=== PATIENT | male | born 1965 | race Caucasian/White ===

== ENCOUNTER 2023-02-02 08:15 | Inpatient (IN) | payer OTHER ==
[2023-02-02] VITALS (13 sets, daily range): BP systolic 91–117; BP diastolic 53–66; PULSE 65–78; RESP 18; TEMP 97.6–98.5
[~2023-02-02] VITALS: Ht 175.3 cm; Wt 95.4 kg
[~2023-02-02 08:15] MED LIST: AMLO2.5T96 PO; ASPI-1450 PO; ASPIRIN 81 MG CHEWABLE TABLET PO ONE; ATOR10TA PO; CETI-450 PO; CLOP75TA60 PO; DIAZEPAM 5 MG TABLET PO ONE; DiphenhydrAMINE HCL 50 MG CAPSULE PO ONE; LISI-892 PO; METF-1211 PO; METO25 PO; NITR0.4T52 SL; PANT-31 PO; SEMA7TAB2 PO; SODIUM CHLORIDE 0.9% 1,000 ML ONE
[2023-02-02] MEDS ORDERED: DiphenhydrAMINE HCL 50 MG CAPSULE ONE (09:21)
[2023-02-02] MEDS ORDERED: DIAZEPAM 5 MG TABLET ONE (09:21)
[2023-02-02] MEDS: SODIUM CHLORIDE 0.9% 1,000 ML IV SCH ×2 (09:32→20:35)
[2023-02-02 09:51] LABS: GLUCOMETER DEV NAME(LOC) SDS.; GLUCOSE,POINT OF CARE 92 MG/DL (70-110)
[2023-02-02] MEDS ORDERED: LIDOCAINE/PF 1% 30 ML VIAL ONE (10:30)
[2023-02-02] MEDS ORDERED: SODIUM BICARBONATE 50 MEQ/50 ML VIAL ONE (10:30)
[2023-02-02] MEDS ORDERED: HEPARIN SODIUM 1000 UNITS/NS 500 ML ONE (10:31)
[2023-02-02] MEDS ORDERED: IOHEXOL 300 MG/ML 100 ML VIAL ONE (10:31)
[2023-02-02] MEDS ORDERED: MIDAZOLAM HCL 2 MG/2 ML VIAL ONE (10:53)
[2023-02-02] MEDS ORDERED: FentaNYL CITRATE PF 100 MCG/2 ML VIAL ONE (10:53)
[2023-02-02] MEDS ORDERED: FentaNYL CITRATE PF 100 MCG/2 ML VIAL IVP ONE (11:30)
[2023-02-02] MEDS ORDERED: LIDOCAINE 1% 30 ML/SOD BICARB 8.4% 4 ML SQ ONE (11:30)
[2023-02-02] MEDS ORDERED: MIDAZOLAM HCL 2 MG/2 ML VIAL IVP ONE (11:30)
[2023-02-02] MEDS ORDERED: HEPARIN SODIUM 2,000 UNITS in HEPARIN SODIUM 1000 UNITS/NS 1,000 ML IARTER ONE (11:30)
[2023-02-02] MEDS ORDERED: IOHEXOL 300 MG/ML 100 ML VIAL ICOR ONE (11:30)
[2023-02-02] MEDS ORDERED: ASPI-1444 PO (11:33)
[2023-02-02] MEDS ORDERED: METO-408 PO (11:34)
[2023-02-02] MEDS ORDERED: GABA-529 PO (11:34)
[2023-02-02] MEDS ORDERED: NITROGLYCERIN 0.4 MG SUBLINGUAL TABLET #25 SL PRN (12:15)
[2023-02-02] MEDS ORDERED: DEXTROSE 50%-WATER 25 GM/50 ML SYRINGE IVP PRN (12:15)
[2023-02-02] MEDS: ACETAMINOPHEN 500 MG TABLET PO SCH (20:34)
[2023-02-02] MEDS: INSULIN LISPRO 100 UNITS/ML SQ PRN (20:45)
[2023-02-03] VITALS: BP 110/62; PULSE 70; RESP 18; TEMP 97.8
[2023-02-03 03:31] LABS: GLUCOMETER DEV NAME(LOC) 5S.1B; GLUCOSE,POINT OF CARE 142 MG/DL (70-110)
[2023-02-03 03:41] LABS: GLUCOMETER DEV NAME(LOC) 5S.2C; GLUCOSE,POINT OF CARE 127 MG/DL (70-110)
[2023-02-03 04:00] VITALS: BP 113/67; PULSE 67; RESP 18; TEMP 98.5
[2023-02-03 07:11] LABS: BASOPHILS % (AUTO) 0.3 % (0.0-2.0); EOSINOPHILS % (AUTO) 1.7 % (1.0-6.0); HEMATOCRIT 39.8 % (41-53); HEMOGLOBIN 13.3 g/dL (13.5-17.5); LYMPHOCYTES # (AUTO) 1.4 K/uL (1.0-4.8); MEAN CORPUSCULAR HEMOGLOBIN 30.2 pg (26.0-34.0); MEAN CORPUSCULAR HGB CONC 33.6 G/dL (31.0-37.0); MEAN CORPUSCULAR VOLUME 90 fL (80-100); MONOCYTES # (AUTO) 0.6 K/uL (0.1-1.0); MONOCYTES % (AUTO) 11.8 % (2.0-9.0); NEUTROPHILS # (AUTO) 3.1 K/uL (1.8-7.7); NEUTROPHILS % (AUTO) 59.2 % (40.0-70.0); PLATELET COUNT (AUTO) 158 K/uL (150-450); RED BLOOD CELL COUNT(AUTO) 4.42 MIL/uL (4.50-5.90); RED CELL DISTRIBUTION WIDTH 13.7 % (11.5-14.5); WHITE BLOOD COUNT (AUTO) 5.2 K/uL (4.5-11.0)
[2023-02-03 07:14] LABS: ANION GAP 10 mmol/L (8-16); CALCIUM, TOTAL 8.4 mg/dL (8.8-10.5); CARBON DIOXIDE 25 mmol/L (22-29); CHLORIDE 104 mmol/L (98-107); CREATININE 0.95 mg/dL (0.60-1.30); GLOMERULAR FILTR. RATE CALC > 60 mL/min (>60); GLUCOSE,RANDOM 98 mg/dL (70-110); POTASSIUM 3.6 mmol/L (3.5-5.1); SODIUM SERUM 139 mmol/L (136-145); UREA NITROGEN, BLOOD 12 mg/dL (7-18)
[2023-02-03 07:21] VITALS: BP 114/69; PULSE 69; RESP 18; TEMP 97.6
[2023-02-03] MEDS: ACETAMINOPHEN 500 MG TABLET PO SCH (08:05)
[2023-02-03 08:42] LABS: GLUCOMETER DEV NAME(LOC) 5S.1B; GLUCOSE,POINT OF CARE 99 MG/DL (70-110)
[2023-02-03] MEDS ORDERED: CETIRIZINE HCL 10 MG TABLET PO SCH (09:00)
[2023-02-03] MEDS ORDERED: ATORVASTATIN CALCIUM 10 MG TABLET PO SCH (09:00)
[2023-02-03] MEDS ORDERED: ASPIRIN 81 MG DR TABLET PO SCH (09:00)
[2023-02-03] MEDS ORDERED: PANTOPRAZOLE SODIUM 40 MG DR TABLET PO SCH (09:00)
[2023-02-03] MEDS ORDERED: METOPROLOL SUCCINATE 25 MG ER TABLET PO SCH (09:00)
[2023-02-03] MEDS ORDERED: LISINOPRIL 5 MG TABLET PO SCH (09:00)
[2023-02-03] MEDS ORDERED: AmLODIPine BESYLATE 2.5 MG TABLET PO SCH (09:00)
[2023-02-03] MEDS ORDERED: GABAPENTIN 100 MG CAPSULE PO SCH (09:00)
[2023-02-03] MEDS ORDERED: CLOPIDOGREL BISULFATE 75 MG TABLET PO SCH (09:00)
[2023-02-03] MEDS: INSULIN LISPRO 100 UNITS/ML SQ PRN (12:01)
[2023-02-03 23:32] LABS: GLUCOMETER DEV NAME(LOC) 5N.1C; GLUCOSE,POINT OF CARE 171 MG/DL (70-110)
== END 2023-02-03 13:27 | disposition home or self-care (01) | DRG 191 ==
LOC: 5S 08:15 → EDSTATUS 10:30
PROVIDERS: ADMIT Internal Medicine Interventional Cardiology; ATTEND Internal Medicine Interventional Cardiology
PROC: 4A023N7 Measurement of Cardiac Sampling and Pressure, Left Heart, Percutaneous Approach (ICD-10-PCS; principal; 2023-02-02)
PROC: B2111ZZ Fluoroscopy of Multiple Coronary Arteries using Low Osmolar Contrast (ICD-10-PCS; 2023-02-02)
PROC: B2151ZZ Fluoroscopy of Left Heart using Low Osmolar Contrast (ICD-10-PCS; 2023-02-02)
PROC: B41F1ZZ Fluoroscopy of Right Lower Extremity Arteries using Low Osmolar Contrast (ICD-10-PCS; 2023-02-02)
DX: I25.110 Atherosclerotic heart disease of native coronary artery with unstable angina pectoris (principal); E11.40 Type 2 diabetes mellitus with diabetic neuropathy, unspecified; I10 Essential (primary) hypertension; E66.01 Morbid (severe) obesity due to excess calories; E78.5 Hyperlipidemia, unspecified; K21.9 Gastro-esophageal reflux disease without esophagitis; Z68.31 Body mass index [BMI] 31.0-31.9, adult
CPT/HCPCS: 80048; 82962; 85025; 93005; J1644; J2250; J3010; J3490; J7030; Q9967